=== PATIENT | female | born 1990 | race Caucasian/White ===

== ENCOUNTER 2018-01-14 12:28 | Day surgery (SDC) | payer OTHER ==
--- NOTE | 2018-01-13 22:01 | GHP ---
[f rep st] PREOPERATIVE HISTORY AND PHYSICAL CURRENT COMPLAINTS: Left shoulder pain. HISTORY OF PRESENT ILLNESS: Ms Harrington is a 27-year-old female who fell from a horse approximately 5 weeks ago had a left clavicle fracture which continues to cause a great deal of pain and deformity at the midshaft of the collar bone. There was no evidence of healing on x-ray. She wishes to have surgery in order to resolve the problem. ALLERGIES: SHE LISTS NO DRUG ALLERGIES. CURRENT MEDICATIONS: She lists no medications. MEDICAL HISTORY: There are no medical problems. PRIOR SURGERIES: Include eye surgery. SOCIAL HISTORY: She has never been a smoker. She is a social drinker. PHYSICAL EXAMINATION: The patient remains neurologically intact to the axillary , musculocutaneous, radial, median and ulnar nerves. She has a prominent bump in the midshaft of her clavicle that is tender. She has pain to a cross chest test. IMAGING: X-ray exam reveals an angulated fracture of the midshaft of the collarbone. ASSESSMENT AND PLAN: Patient is status post left clavicle fracture. PLAN: To take her to the operating room to undergo open reduction and internal fixation of her left clavicle. /[id number]/MODL MTDD
[2018-01-14] MEDS ORDERED: ceFAZolin 2 GM/DEXTROSE 100 ML IV ONE (13:47)
[2018-01-14] MEDS ORDERED: TRANEXAMIC ACID 3,000 MG in NS (SYRINGE) 50 ML IRR ONE (13:47)
[2018-01-14] MEDS ORDERED: ROPIVACAINE 0.2% 80 MG, EPINEPHrine 0.2 MG, KETOROLAC TROMETHAMINE 30 MG, morphINE 10 M... IU ONE (13:47)
[2018-01-14] MEDS ORDERED: LIDOCAINE 1% 2 ML INJ ID PRN (13:47)
[2018-01-14] MEDS ORDERED: LR 1,000 ML IV ONE (13:47)
[2018-01-14] MEDS ORDERED: BUPIVACAINE/EPI 0.5% 30 ML SDV ONE (14:02)
[2018-01-14] MEDS ORDERED: POLYMYXIN B SULFATE 500,000 UNIT/10 ML SYR IRR ONE (14:02)
[2018-01-14] MEDS ORDERED: BACITRACIN 50,000 UNITS/10 ML SYR IRR ONE (14:02)
--- NOTE | 2018-01-14 14:43 | PDANEPAE ---
ANE History of Present Illness 27 year old female for left clavicle ORIF. ANE Past Medical History - Cardiovascular History Hx Hypertension: No Hx Arrhythmias: No Hx Chest Pain: No Hx Coronary Artery / Peripheral Vascular Disease: No Hx CHF / Valvular Disease: No Hx Palpitations: No - Pulmonary History Hx COPD: No Hx Asthma/Reactive Airway Disease: No Hx Recent Upper Respiratory Infection: No Hx Oxygen in Use at Home: No Hx Sleep Apnea: No - Neurologic History Hx Cerebrovascular Accident: No Hx Seizures: No Hx Dementia: No - Endocrine History Hx Diabetes: No Hypothyroid: No Hyperthyroid: No Obesity: no - Renal History Hx Renal Disorders: No - Liver History Hx Hepatic Disorders: No - Neurological & Psychiatric Hx Hx Neurological and Psychiatric Disorders: No - Cancer History Hx Cancer: No - GI History GERD: no Hx Gastrointestinal Disorders: No ANE Review of Systems Review of systems is: negative Review of Systems: - Exercise capacity Exercise capacity: >=4 METS ANE Patient History - Allergies Allergies/Adverse Reactions: No Known Allergies Allergy (Unverified 01/13/18 21:50) - Home Medications Home medications: home medication list seen and reviewed - NPO status NPO Status: no food or drink >8 hours NPO Since - Liquids (Date): 01/13/18 NPO Since - Liquids (Time): 18:00 NPO Since - Solids (Date): 01/13/18 NPO Since - Solids (Time): 18:00 - Anes Hx Anes Hx: no prior problems - Smoking Hx Smoking Status: Never smoked Marijuana use: No - Alcohol Use Alcohol Use: None - Family Anes Hx Family Anes Hx: neg - N/A ANE Labs/Vital Signs - Vital Signs Vital Signs: reviewed preoperatively; see RN documention for details Blood Pressure: 139/102 Heart Rate: 77 Respiratory Rate: 16 O2 Sat (%): 99 Height: 165.1 cm Weight: 56.699 kg ANE Physical Exam - Airway Neck exam: FROM Mallampati Score: Class 2 Mouth exam: normal dental/mouth exam - Pulmonary Pulmonary: no respiratory distress - Cardiovascular Cardiovascular: regular rate and rhythym - ASA Status ASA Status: I ANE Anesthesia Plan Anesthesia Plan: general endotracheal anesthesia, GA w LMA Regional Anesthesia: single shot NB, interscalene BP NB Total IV Anesthesia: No
[2018-01-14] MEDS ORDERED: MIDAZOLAM 2 MG/2 ML VIAL IVP ONE (14:51)
[2018-01-14] MEDS ORDERED: fentaNYL 100 MCG/2 ML INJ ONE (15:01)
[2018-01-14] MEDS ORDERED: CALCIUM CHLORIDE 1 GM/10 ML INJ ONE (15:05)
[2018-01-14] MEDS ORDERED: THROMBIN (BOVINE) 5,000 UNIT VIAL TP ONE (15:05)
[2018-01-14] MEDS ORDERED: PROPOFOL/EMULSION 500 MG/50 ML BOTTLE IV ONE ×2 (15:10→16:26)
[2018-01-14] MEDS ORDERED: ROCURONIUM 50 MG/5 ML VIAL ONE (15:11)
--- NOTE | 2018-01-14 15:35 | PDHPUP ---
History & Physical Update H&P update statement: This history and physical update is based on an assessment of the patient which was completed after admission or registration (within 24 hours), but prior to the surgery/procedure. H&P update: H&P reviewed & patient examined, no change in patient's condition since H&P completed
[2018-01-14] MEDS ORDERED: ONDANSETRON 4 MG/2 ML VIAL ONE (16:09)
[2018-01-14] MEDS ORDERED: DEXAMETHASONE 4 MG/ML VIAL ONE (16:09)
[2018-01-14] MEDS ORDERED: HYDROmorphONE/DILAUDID 2 MG/ML INJ ONE (16:26)
[2018-01-14] MEDS ORDERED: SUGAMMADEX SODIUM 200 MG/2 ML VIAL IVP ONE (16:45)
[2018-01-14] MEDS ORDERED: oxyCODONE IR 5 MG TAB PO PRN (17:11)
[2018-01-14] MEDS ORDERED: HYDROmorphONE/DILAUDID 1 MG/ML INJ IVP PRN (17:11)
[2018-01-14] MEDS ORDERED: LR 500 ML IV PRN (17:11)
[2018-01-14] MEDS ORDERED: ACETAMINOPHEN 500 MG TAB PO PRN (17:11)
[2018-01-14] MEDS ORDERED: PHENYLEPHRINE HCL 100 MCG/ML SYR IVP PRN (17:11)
[2018-01-14] MEDS ORDERED: fentaNYL 100 MCG/2 ML INJ IVP PRN (17:11)
[2018-01-14] MEDS ORDERED: ONDANSETRON 4 MG/2 ML VIAL IVP PRN ×2 (17:11→17:28)
[2018-01-14] MEDS ORDERED: NALOXONE HCL 0.4 MG/ML INJ IVP PRN (17:11)
[2018-01-14] MEDS ORDERED: OXYCODONE/APAP 5/325 TAB PO PRN (17:28)
--- NOTE | 2018-01-14 17:33 | POSTOPPROG ---
Post Op Note Date of Operation: 01/14/18 Surgeon: Zaira Cabrales Adjunct Phlebotomy Instructor: Tabitha Cedillo PA-C Anesthesiologist: Dr. Rivera Anesthesia: GET(General Endotracheal) Pre-op Diagnosis: left clavicle fracture Post-op Diagnosis: left clavicle fracture Indication: left clavicle fracture Procedure: ORIF left clavicle fracture Inf/Abcess present in the surg proc area at time of surgery?: No EBL: Minimal
[2018-01-14] MEDS ORDERED: oxyCODONE IR 5 MG TAB ONE (18:22)
--- NOTE | 2018-01-14 18:26 | GOP ---
[f rep st] OPERATIVE REPORT DATE OF OPERATION: 01/14/2018 SURGEON: Zaira Cabrales MD CLINICAL INTERVIEWER: Tabitha Cedillo PA-C, whose presence was medically necessary. ANESTHESIA: LMA. PREOPERATIVE DIAGNOSIS: Left clavicle fracture. POSTOPERATIVE DIAGNOSIS: Left clavicle fracture. PROCEDURE PERFORMED: FINDINGS: DESCRIPTION OF PROCEDURE: Patient brought to the operating room. The left side had been identified as correct side by the patient, nurse and physician. Once in the operating room, she was placed unde r general anesthesia using an LMA. She was placed in a beach chair position with the left shoulder s terilely prepped and draped in usual fashion using GSI solution. Once prepped and draped, a linear i ncision was made centered over the actual palpable fracture site. Approximately 6 cm on either side of the bump with sharp dissection carried down through the skin and subcutaneous layers with bleeding controlled using electrocautery. The supraclavicular nerves were not found in the area. Sharp diss ection was carried down onto the periosteum overlying the clavicle. The fracture was exposed. She w as noted to have callus formation along the shaft of the proximal and distal fragment, but no callus formation noted between the bones themselves. The callus was removed from around the shaft as well a s the soft tissue that was transposed between the 2 bony fracture edges. Once thoroughly cleaned, th e bone was able to be reduced anatomically. It was held in place with point of reduction bone forcep s. A 6-hole Acumed plate was then put into place with bicortical screws placed in the proximal dista l fragments, and then a lag screw placed across the actual fracture site in order to gain compression across the fracture site. The remaining holes were then filled with locking screws. Once in place, fluoroscopy was used to ensure adequate length to the screws. Once ensured, the wound was thoroughl y irrigated with antibiotic solution, was irrigated with tranexamic acid to control bleeding and join t cocktail was injected around the periosteum of the bone in order to help with bone comfort. The wo und was then closed in layers to include 0 Vicryl suture for the periosteal and platysmal layers. On ce closed, 2-0 Vicryl suture used for the subcutaneous tissue and a 3-0 V-Loc suture in a running sub cuticular stitch for the skin. Marcaine 20 mL was infused around the actual incision site itself. T he wound was dressed with Steri-Strips, Xeroform, 4 x 4 and Tegaderm. She was completely undraped in the operating room, had a sling placed on the left upper extremity. She was woken up, extubated, tr ansferred onto a stretcher, and sent to recovery room in good condition. PROCEDURE PERFORMED: Left clavicle open reduction and internal fixation with fluoroscopy. INDICATION FOR SURGERY: This is a 27-year-old female, who 5 weeks ago was involved with a horse fall ing to the ground. She had a midshaft clavicle fracture. In the ensuing 5 weeks, she continues to h ave pain and decreased ability into the arm secondary to pain she experiences she wished to have surg [facility] in order to resolve the problem. /[id number]/MODL
[2018-01-14 18:33] VITALS: BP 135/91
--- NOTE | 2018-01-16 16:12 | POSTANESTH ---
Post Anesthetic Evaluation Cardiovascular Status: Normal, Stable, Similar to Pre-Op Cond Respiratory Status: Normal, Stable, Similar to Pre-op Cond. Level of Consciousness/Mental Status: Can Participate in Eval, Alert and Oriented Pain Control: Adequate, Prn Tx Ordered Nausea/Vomiting Control: Adequate, Prn Tx Ordered Complications Possibly Related to Anesthesia: None Noted
== END 2018-01-14 18:45 | disposition home or self-care (01) ==
LOC: FSGY 12:28
PROVIDERS: ATTEND Orthopaedic Surgery
DX: S42.022A Displaced fracture of shaft of left clavicle, initial encounter for closed fracture (principal); V80.010A Animal-rider injured by fall from or being thrown from horse in noncollision accident, initial encounter; Y93.52 Activity, horseback riding
CPT/HCPCS: C1713; J0171; J0690; J1100; J1170; J1885; J2250; J2270; J2405; J2704; J2795; J3010